=== PATIENT | female | born 1990 | race Caucasian/White ===

== ENCOUNTER 2017-05-06 13:41 | Emergency (ER) | payer OTHER ==
[~2017-05-06] VITALS: Ht 160 cm; Wt 71.0 kg
[~2017-05-06 13:41] MED LIST: AMOX/K CLAV500 MG PO; AMOXICILLIN500 MG OR; AMOXICILLIN500 MG PO; BENADRYL 50MG C50 MG PO; CAPOTEN25 MG PO; CIPRO500 MG PO; CIPROFLOXACN500 MG PO; CLONIDINE0.2 MG PO; DOMBORO OTIC15 ML OT; DOXAZOSIN2 M1 PO; FERR SULFATE325 MG PO; FIORICET PO; FISH OIL1 CAP PO; HI CAL PO; ISOSORB MONO30 MG PO; KEFLEX500 M1 PO; LORTAB 5/3255 MG PO; LORTAB 7.57.5 MG PO; LORTAB5 PO; MACROBID100 MG PO; MACRODANTIN100 MG OR; MACRODANTIN100 MG PO; MEDDOSEPAK PO; MEGESTROL AC20 MG PO; MELOXICAM7.5 MG PO; METOPROL TAR50 MG PO; MOTRIN800 MG PO; MULTI PO; NAPROSYN500 MG PO; NO HOME MEDS; NYSTATIN100000 M3 EX; PENICILLN VK250 MG PO; PENICILLN VK500 MG PO; PEPCID20 MG PO; PRENATA8 OR; PRENATABS PO; PRENATAL1 TAB OR; PYRIDIUM200 MG PO; RANITIDINE150 MG PO; TUMS500 MG; ULTRAM50 M1 PO
[2017-05-06] MEDS ORDERED: MACROBID100 MG PO (14:09)
[2017-05-06] MEDS ORDERED: PYRIDIUM200 MG PO (14:09)
[2017-05-06 14:25] LABS: URINE BILIRUBIN - DIPSTICK NEGATIVE (NEGATIVE); URINE BLOOD DIPSTICK LARGE (NEGATIVE); URINE COLOR YELLOW; URINE GLUCOSE - DIPSTICK NEGATIVE (NEGATIVE); URINE KETONE NEGATIVE (NEGATIVE); URINE NITRITE - DIPSTICK NEGATIVE (Negative); URINE PH 5.5 (4.5-8.0); URINE PROTEIN - DIPSTICK NEGATIVE (NEG-TRACE); URINE SPECIFIC GRAVITY <=1.005; URINE UROBILINOGEN - DIPSTICK 0.2 E.U./dL (0.2)
[2017-05-06 14:35] VITALS: BP 122/75
[2017-05-06 14:39] LABS: URINE CLARITY CLOUDY; URINE LEUK ESTERASE LARGE (NEGATIVE)
[2017-05-06 14:42] LABS: URINE BACTERIA FEW hpf; URINE RBC TNTC RBC/hpf (0-5); URINE WBC TNTC WBC/hpf (0-5)
== END 2017-05-06 14:39 | disposition home or self-care (01) | DRG 781 ==
LOC: ED 13:41
PROVIDERS: Emergency Medicine
DX: O23.41 Unspecified infection of urinary tract in pregnancy, first trimester (principal); Z3A.10 10 weeks gestation of pregnancy

== ENCOUNTER 2017-11-01 21:02 | Emergency (ER) | payer OTHER ==
[~2017-11-01] VITALS: Ht 160 cm; Wt 79.4 kg
[~2017-11-01 21:02] MED LIST changes: +PRE-NATAL PO
[2017-11-01 22:19] LABS: INFLUENZA A NONE DETECTED (NONE DETECT); INFLUENZA B NONE DETECTED (NONE DETECT)
[2017-11-01] MEDS ORDERED: MOTRIN800 MG PO (22:21)
[2017-11-01] MEDS ORDERED: AFRIN 12 HOUR0.05 % (22:21)
[2017-11-01 22:50] VITALS: BP 120/64
== END 2017-11-01 22:50 | disposition home or self-care (01) | DRG 781 ==
LOC: ED 21:02
PROVIDERS: Emergency Medicine
DX: O99.513 Diseases of the respiratory system complicating pregnancy, third trimester (principal); J06.9 Acute upper respiratory infection, unspecified; R50.9 Fever, unspecified; J02.9 Acute pharyngitis, unspecified; R05 Cough; Z3A.36 36 weeks gestation of pregnancy

== ENCOUNTER 2018-05-14 10:29 | Emergency (ER) | payer OTHER ==
[~2018-05-14] VITALS: Ht 160 cm; Wt 64.5 kg
[~2018-05-14 10:29] MED LIST changes: +AFRIN 12 HOUR0.05 %
[2018-05-14] MEDS ORDERED: AMOXICILLIN875 MG PO (11:32)
[2018-05-14 11:35] VITALS: BP 121/76
== END 2018-05-14 11:35 | disposition home or self-care (01) | DRG 153 ==
LOC: ED 10:29
DX: J02.0 Streptococcal pharyngitis (principal); H92.02 Otalgia, left ear

== ENCOUNTER 2018-07-11 10:01 | Emergency (ER) | payer OTHER ==
[~2018-07-11] VITALS: Ht 160 cm; Wt 66.8 kg
[~2018-07-11 10:01] MED LIST changes: +AMOXICILLIN875 MG PO
[2018-07-11 11:12] LABS: URINE BILIRUBIN - DIPSTICK NEGATIVE (NEGATIVE); URINE BLOOD DIPSTICK NEGATIVE (NEGATIVE); URINE COLOR YELLOW; URINE GLUCOSE - DIPSTICK NEGATIVE (NEGATIVE); URINE KETONE NEGATIVE (NEGATIVE); URINE LEUK ESTERASE TRACE (NEGATIVE); URINE NITRITE - DIPSTICK NEGATIVE (Negative); URINE PROTEIN - DIPSTICK NEGATIVE (NEG-TRACE); URINE SPECIFIC GRAVITY 1.015; URINE UROBILINOGEN - DIPSTICK 0.2 E.U./dL (0.2)
[2018-07-11 11:14] LABS: URINE CLARITY CLEAR
[2018-07-11 11:16] LABS: HEMATOCRIT 42.8 % (37.0-47.0); HEMOGLOBIN 14.2 g/dl (12.0-16.0); IMMATURE GRANULOCYTES 0.4 % (0.0-5.0); MEAN CELL VOLUME 92.6 fL CALC (80.0-100.0); MEAN CORPUSCULAR HGB 30.7 pG CALC (26.0-32.0); MEAN CORPUSCULAR HGB CONC 33.2 g/L CALC (32.0-36.0); NEUT# 4.69 thou/uL (2.00-7.15); RED BLOOD COUNT 4.62 mill/uL (4.20-5.60)
[2018-07-11 11:32] LABS: ALBUMIN 4.2 g/dL (3.2-5.0); ALKALINE PHOSPHATASE 63 u/l (38-126); ANION GAP 15 (6-22 (CALC)); BILIRUBIN, TOTAL 0.5 mg/dL (0.0-1.4); BUN 8 mg/dL (7-17); BUN/CREATININE RATIO 11 (12-20 (CALC)); CARBON DIOXIDE 25 mmol/l (22-30); CHLORIDE 108 mmol/l (95-108); CREATININE 0.7 mg/dL (0.5-1.0); GFR > 60 ML/MIN (>=60 (CALC)); GFR FOR AFR.AMER. > 60 ML/MIN (>=60 (CALC)); POTASSIUM 3.7 mmol/l (3.5-5.1); SGOT/AST 13 u/l (14-36); SGPT/ALT 23 u/l (9-52); SODIUM 144 mmol/l (137-146); TOTAL PROTEIN 6.8 g/dL (6.3-8.2)
[2018-07-11 11:51] VITALS: BP 116/77
== END 2018-07-11 12:07 | disposition home or self-care (01) ==
LOC: ED 10:01
PROVIDERS: Emergency Medicine
DX: N93.8 Other specified abnormal uterine and vaginal bleeding (principal)

== ENCOUNTER 2018-10-14 18:01 | Emergency (ER) | payer OTHER | END 2018-10-14 18:36 | disposition left against medical advice (07) | LOC: ED 18:01 → LWOBS 18:25 | DX: Z91.19 Patient's noncompliance with other medical treatment and regimen (principal) ==

== ENCOUNTER 2018-10-27 21:22 | Emergency (ER) | payer OTHER ==
[~2018-10-27] VITALS: Ht 160 cm; Wt 62.0 kg
[2018-10-27 22:07] LABS: HEMOGLOBIN 12.6 g/dl (12.0-16.0); IMMATURE GRANULOCYTES 0.3 % (0.0-5.0); MEAN CELL VOLUME 93.6 fL CALC (80.0-100.0); MEAN CORPUSCULAR HGB CONC 33.2 g/L CALC (32.0-36.0); NEUT# 4.36 thou/uL (2.00-7.15); RED BLOOD COUNT 4.06 mill/uL (4.20-5.60); RED CELL DISTRI WIDTH 12.6 % (11.5-15.5); URINE BILIRUBIN - DIPSTICK NEGATIVE (NEGATIVE); URINE BLOOD DIPSTICK LARGE (NEGATIVE); URINE GLUCOSE - DIPSTICK NEGATIVE (NEGATIVE); URINE KETONE NEGATIVE (NEGATIVE); URINE LEUK ESTERASE TRACE (NEGATIVE); URINE NITRITE - DIPSTICK NEGATIVE (Negative); URINE PH 6.5 (4.5-8.0); URINE PROTEIN - DIPSTICK 30 mg/dL (NEG-TRACE); URINE UROBILINOGEN - DIPSTICK 0.2 E.U./dL (0.2)
[2018-10-27 22:14] LABS: URINE CLARITY TURBID; URINE COLOR ORANGE; URINE RBC 25-50 RBC/hpf (0-5); URINE SQUAMOUS EPITHELIAL CELL FEW EPI/hpf (0-FEW)
[2018-10-27 22:28] LABS: ALBUMIN 3.8 g/dL (3.2-5.0); ALKALINE PHOSPHATASE 58 u/l (38-126); ANION GAP 12 (6-22 (CALC)); BILIRUBIN, TOTAL 0.2 mg/dL (0.0-1.4); BUN 10 mg/dL (7-17); BUN/CREATININE RATIO 13 (12-20 (CALC)); CARBON DIOXIDE 23 mmol/l (22-30); CHLORIDE 107 mmol/l (95-108); CREATININE 0.7 mg/dL (0.5-1.0); GFR > 60 ML/MIN (>=60 (CALC)); GFR FOR AFR.AMER. > 60 ML/MIN (>=60 (CALC)); POTASSIUM 3.4 mmol/l (3.5-5.1); SGOT/AST 14 u/l (14-36); SODIUM 138 mmol/l (137-146); TOTAL PROTEIN 6.5 g/dL (6.3-8.2)
[2018-10-27 22:44] LABS: BETA-HCG, QUANT(RESULT NUMBER) <2 mIU/mL
[2018-10-27 23:59] VITALS: BP 114/69
== END 2018-10-27 23:58 | disposition home or self-care (01) ==
LOC: ED 21:22
PROVIDERS: Emergency Medicine
DX: O20.9 Hemorrhage in early pregnancy, unspecified (principal); Z3A.01 Less than 8 weeks gestation of pregnancy

== ENCOUNTER 2018-11-02 15:33 | Emergency (ER) | payer OTHER ==
[~2018-11-02] VITALS: Ht 160 cm; Wt 70.0 kg
[2018-11-02] MEDS ORDERED: MOTRIN400 MG PO (16:07)
[2018-11-02] MEDS ORDERED: LO LOESTRIN PO (16:13)
[2018-11-02 16:55] VITALS: BP 127/84
== END 2018-11-02 16:55 | disposition home or self-care (01) ==
LOC: ED 15:33
DX: S90.02XA Contusion of left ankle, initial encounter (principal); S91.205A Unspecified open wound of left lesser toe(s) with damage to nail, initial encounter; S90.222A Contusion of left lesser toe(s) with damage to nail, initial encounter; W22.8XXA Striking against or struck by other objects, initial encounter; Y92.009 Unspecified place in unspecified non-institutional (private) residence as the place of occurrence of the external cause

== ENCOUNTER 2019-02-18 08:34 | Emergency (ER) | payer OTHER ==
[~2019-02-18] VITALS: Ht 160 cm; Wt 66.4 kg
[~2019-02-18 08:34] MED LIST changes: +LO LOESTRIN PO; +MOTRIN400 MG PO
[2019-02-18 09:02] LABS: URINE BLOOD DIPSTICK LARGE (NEGATIVE); URINE GLUCOSE - DIPSTICK NEGATIVE (NEGATIVE); URINE KETONE TRACE mg/dL (NEGATIVE); URINE NITRITE - DIPSTICK NEGATIVE (Negative); URINE PROTEIN - DIPSTICK >=300 mg/dL (NEG-TRACE); URINE SPECIFIC GRAVITY 1.025
[2019-02-18 09:06] LABS: URINE BILIRUBIN - DIPSTICK SMALL (NEGATIVE); URINE LEUK ESTERASE MODERATE (NEGATIVE)
[2019-02-18 09:07] LABS: URINE BACTERIA MODERATE hpf; URINE COLOR DK. YELLOW; URINE EPITHELIAL CELLS MANY EPI/hpf (0-FEW); URINE RBC 50-100 RBC/hpf (0-5); URINE WBC 20-50 WBC/hpf (0-5)
[2019-02-18] MEDS ORDERED: PYRIDIUM200 MG PO (09:17)
[2019-02-18] MEDS ORDERED: KEFLEX500 M1 PO (09:17)
[2019-02-18 09:18] VITALS: BP 119/74
== END 2019-02-18 09:32 | disposition home or self-care (01) ==
LOC: ED 08:34
PROVIDERS: Emergency Medicine
DX: N39.0 Urinary tract infection, site not specified (principal); R30.0 Dysuria; R35.0 Frequency of micturition; R39.15 Urgency of urination; B96.20 Unspecified Escherichia coli [E. coli] as the cause of diseases classified elsewhere

== ENCOUNTER 2019-03-29 17:58 | Emergency (ER) | payer OTHER ==
[~2019-03-29] VITALS: Ht 160 cm; Wt 65.0 kg
[2019-03-29 18:02] VITALS: BP 131/83
[2019-03-29] MEDS ORDERED: OXYCOD-APAP1 TA1 PO (18:20)
[2019-03-29] MEDS ORDERED: TRAMADOL HCL50 MG PO (18:20)
[2019-03-29 18:31] LABS: URINE BILIRUBIN - DIPSTICK NEGATIVE (NEGATIVE); URINE BLOOD DIPSTICK MODERATE (NEGATIVE); URINE COLOR YELLOW; URINE GLUCOSE - DIPSTICK NEGATIVE (NEGATIVE); URINE KETONE NEGATIVE (NEGATIVE); URINE NITRITE - DIPSTICK NEGATIVE (Negative); URINE PROTEIN - DIPSTICK NEGATIVE (NEG-TRACE); URINE UROBILINOGEN - DIPSTICK 0.2 E.U./dL (0.2)
[2019-03-29 18:34] LABS: URINE LEUK ESTERASE SMALL (NEGATIVE)
[2019-03-29 18:59] LABS: URINE BACTERIA FEW hpf; URINE RBC TNTC RBC/hpf (0-5); URINE SQUAMOUS EPITHELIAL CELL FEW EPI/hpf (0-FEW)
[2019-03-29] MEDS ORDERED: CIPROFLOXACN500 MG PO (19:12)
== END 2019-03-29 19:20 | disposition home or self-care (01) ==
LOC: ED 17:58
PROVIDERS: Emergency Medicine
DX: N39.0 Urinary tract infection, site not specified (principal); Z87.440 Personal history of urinary (tract) infections

== ENCOUNTER 2019-05-31 17:21 | Emergency (ER) | payer OTHER ==
[~2019-05-31] VITALS: Ht 160 cm; Wt 80.0 kg
[~2019-05-31 17:21] MED LIST changes: +OXYCOD-APAP1 TA1 PO; +TRAMADOL HCL50 MG PO
[2019-05-31] MEDS ORDERED: BACTRIM DS1 TAB PO ×2 (18:02→18:29)
[2019-05-31] MEDS ORDERED: CEPHALEXIN500 MG PO ×2 (18:02→18:29)
[2019-05-31 18:30] VITALS: BP 115/72
== END 2019-05-31 18:38 | disposition home or self-care (01) ==
LOC: ED 17:21
DX: T24.112A Burn of first degree of left thigh, initial encounter (principal); T24.121A Burn of first degree of right knee, initial encounter; T24.111A Burn of first degree of right thigh, initial encounter; L03.116 Cellulitis of left lower limb; L03.115 Cellulitis of right lower limb; X19.XXXA Contact with other heat and hot substances, initial encounter; Y93.89 Activity, other specified; Y92.89 Other specified places as the place of occurrence of the external cause

== ENCOUNTER 2019-06-03 19:01 | Emergency (ER) | payer OTHER ==
[~2019-06-03] VITALS: Ht 160 cm; Wt 70.9 kg
[~2019-06-03 19:01] MED LIST changes: +BACTRIM DS1 TAB PO; +CEPHALEXIN500 MG PO
[2019-06-03] MEDS ORDERED: BACTRIM DS1 TAB PO (19:34)
[2019-06-03 20:08] VITALS: BP 119/75
== END 2019-06-03 20:08 | disposition home or self-care (01) ==
LOC: ED 19:01
DX: S70.322A Blister (nonthermal), left thigh, initial encounter (principal); L08.9 Local infection of the skin and subcutaneous tissue, unspecified; F17.200 Nicotine dependence, unspecified, uncomplicated; X58.XXXA Exposure to other specified factors, initial encounter

== ENCOUNTER 2019-07-05 10:07 | Emergency (ER) | payer OTHER ==
[~2019-07-05] VITALS: Ht 160 cm; Wt 71.8 kg
[2019-07-05 10:52] LABS: IMMATURE GRANULOCYTES 0.3 % (0.0-5.0); MEAN CELL VOLUME 93.2 fL CALC (80.0-100.0); MEAN CORPUSCULAR HGB 30.2 pG CALC (26.0-32.0); MEAN CORPUSCULAR HGB CONC 32.4 g/L CALC (32.0-36.0); NEUT# 7.34 thou/uL (2.00-7.15); RED BLOOD COUNT 4.84 mill/uL (4.20-5.60); RED CELL DISTRI WIDTH 12.7 % (11.5-15.5)
[2019-07-05 10:55] LABS: HEMATOCRIT 45.1 % (37.0-47.0); HEMOGLOBIN 14.6 g/dl (12.0-16.0)
[2019-07-05 11:10] LABS: ALBUMIN 4.5 g/dL (3.2-5.0); ANION GAP 16 (6-22 (CALC)); BUN 7 mg/dL (7-17); BUN/CREATININE RATIO 10 (12-20 (CALC)); CARBON DIOXIDE 23 mmol/l (22-30); CHLORIDE 104 mmol/l (95-108); CREATININE 0.7 mg/dL (0.5-1.0); GFR > 60 ML/MIN (>=60 (CALC)); GFR FOR AFR.AMER. > 60 ML/MIN (>=60 (CALC)); POTASSIUM 3.8 mmol/l (3.5-5.1); SGOT/AST 17 u/l (14-36); SODIUM 139 mmol/l (137-146); TOTAL PROTEIN 7.3 g/dL (6.3-8.2)
[2019-07-05 11:11] LABS: ALKALINE PHOSPHATASE 90 u/l (38-126); BILIRUBIN, TOTAL 0.5 mg/dL (0.0-1.4)
[2019-07-05] MEDS ORDERED: CEPHALEXIN500 M1 PO (11:16)
[2019-07-05] MEDS ORDERED: BACTRIM DS1 TAB PO (11:16)
[2019-07-05] MEDS ORDERED: BENADRYL 50MG C50 MG PO (11:18)
[2019-07-05 11:47] VITALS: BP 129/76
[2019-07-05] MEDS ORDERED: IBUPROFEN600 MG PO (23:26)
== END 2019-07-05 11:50 | disposition home or self-care (01) ==
LOC: ED 10:07
PROVIDERS: Emergency Medicine
DX: L03.114 Cellulitis of left upper limb (principal); F17.210 Nicotine dependence, cigarettes, uncomplicated

== ENCOUNTER 2019-07-05 22:56 | Emergency (ER) | payer OTHER ==
[~2019-07-05] VITALS: Ht 160 cm; Wt 69.0 kg
[~2019-07-05 22:56] MED LIST changes: +CEPHALEXIN500 M1 PO
[2019-07-05 23:13] VITALS: BP 135/79
[2019-07-05] MEDS ORDERED: IBUPROFEN600 MG PO (23:26)
== END 2019-07-05 23:30 | disposition home or self-care (01) ==
LOC: ED 22:56
DX: S40.862A Insect bite (nonvenomous) of left upper arm, initial encounter (principal); F17.200 Nicotine dependence, unspecified, uncomplicated; W57.XXXA Bitten or stung by nonvenomous insect and other nonvenomous arthropods, initial encounter

== ENCOUNTER 2019-07-06 09:20 | Emergency (ER) | payer OTHER ==
[~2019-07-06] VITALS: Ht 160 cm; Wt 70.0 kg
[~2019-07-06 09:20] MED LIST changes: +IBUPROFEN600 MG PO
[2019-07-06 09:48] VITALS: BP 132/92
== END 2019-07-06 09:53 | disposition home or self-care (01) ==
LOC: ED 09:20
DX: L03.114 Cellulitis of left upper limb (principal); S50.862D Insect bite (nonvenomous) of left forearm, subsequent encounter; F17.210 Nicotine dependence, cigarettes, uncomplicated; W57.XXXD Bitten or stung by nonvenomous insect and other nonvenomous arthropods, subsequent encounter

== ENCOUNTER 2020-10-06 12:05 | Emergency (ER) | payer OTHER ==
[~2020-10-06] VITALS: Ht 160 cm; Wt 85.0 kg
[2020-10-06 13:04] LABS: HEMOGLOBIN 13.3 g/dl (12.0-16.0); IMMATURE GRANULOCYTES 0.2 % (0.0-5.0); MEAN CELL VOLUME 93.8 fL CALC (80.0-100.0); MEAN CORPUSCULAR HGB 30.4 pG CALC (26.0-32.0); MEAN CORPUSCULAR HGB CONC 32.4 g/dL CAL (32.0-36.0); NEUT# 5.73 thou/uL (2.00-7.15); RED BLOOD COUNT 4.37 mill/uL (4.20-5.60); RED CELL DISTRI WIDTH 12.8 % (11.5-15.5)
[2020-10-06 13:18] LABS: HCG SERUM/URINE (NEG/POS) NEGATIVE (NEGATIVE)
[2020-10-06 13:21] LABS: ANION GAP 11 (6-22 (CALC)); BUN 9 mg/dL (7-17); BUN/CREATININE RATIO 13 (12-20 (CALC)); CARBON DIOXIDE 24 mmol/l (22-30); CHLORIDE 107 mmol/l (95-108); CREATININE 0.7 mg/dL (0.5-1.0); GFR > 60 ML/MIN (>=60 (CALC)); GFR FOR AFR.AMER. > 60 ML/MIN (>=60 (CALC)); SODIUM 139 mmol/l (137-146)
[2020-10-06 14:38] VITALS: BP 100/54
== END 2020-10-06 14:45 | disposition home or self-care (01) ==
LOC: ED 12:05
PROVIDERS: Family Medicine
DX: R07.9 Chest pain, unspecified (principal); F17.200 Nicotine dependence, unspecified, uncomplicated; Z20.828 Contact with and (suspected) exposure to other viral communicable diseases

== ENCOUNTER 2020-11-14 12:51 | Emergency (ER) | payer OTHER ==
[~2020-11-14] VITALS: Ht 160 cm; Wt 72.0 kg
[2020-11-14 13:28] LABS: HEMATOCRIT 42.5 % (37.0-47.0); HEMOGLOBIN 13.6 g/dl (12.0-16.0); IMMATURE GRANULOCYTES 0.3 % (0.0-5.0); MEAN CELL VOLUME 93.4 fL CALC (80.0-100.0); MEAN CORPUSCULAR HGB 29.9 pG CALC (26.0-32.0); NEUT# 5.46 thou/uL (2.00-7.15); RED BLOOD COUNT 4.55 mill/uL (4.20-5.60); RED CELL DISTRI WIDTH 12.9 % (11.5-15.5)
[2020-11-14 13:30] LABS: URINE BILIRUBIN - DIPSTICK NEGATIVE (NEGATIVE); URINE BLOOD DIPSTICK LARGE (NEGATIVE); URINE CLARITY CLOUDY; URINE COLOR RED; URINE GLUCOSE - DIPSTICK NEGATIVE (NEGATIVE); URINE KETONE NEGATIVE (NEGATIVE); URINE LEUK ESTERASE TRACE (Negative); URINE NITRITE - DIPSTICK NEGATIVE (Negative); URINE PH 6.5 (4.5-8.0); URINE PROTEIN - DIPSTICK 30 mg/dL (NEG-TRACE); URINE UROBILINOGEN - DIPSTICK 0.2 E.U./dL (0.2)
[2020-11-14 13:36] LABS: URINE RBC TNTC RBC/hpf (0-5); URINE SQUAMOUS EPITHELIAL CELL FEW EPI/hpf (0-FEW)
[2020-11-14 13:43] LABS: ALBUMIN 4.2 g/dL (3.2-5.0); ALKALINE PHOSPHATASE 69 u/l (38-126); ANION GAP 11 (6-22 (CALC)); BILIRUBIN, TOTAL 0.4 mg/dL (0.0-1.4); BUN 9 mg/dL (7-17); BUN/CREATININE RATIO 11 (12-20 (CALC)); CARBON DIOXIDE 24 mmol/l (22-30); CHLORIDE 106 mmol/l (95-108); CREATININE 0.8 mg/dL (0.5-1.0); GFR > 60 ML/MIN (>=60 (CALC)); GFR FOR AFR.AMER. > 60 ML/MIN (>=60 (CALC)); POTASSIUM 3.8 mmol/l (3.5-5.1); SGOT/AST 18 u/l (14-36); SODIUM 137 mmol/l (137-146); TOTAL PROTEIN 7.2 g/dL (6.3-8.2)
[2020-11-14 14:36] VITALS: BP 123/72
== END 2020-11-14 14:48 | disposition home or self-care (01) ==
LOC: ED 12:51
DX: N93.8 Other specified abnormal uterine and vaginal bleeding (principal); F17.210 Nicotine dependence, cigarettes, uncomplicated; Z20.828 Contact with and (suspected) exposure to other viral communicable diseases; S61.212A Laceration without foreign body of right middle finger without damage to nail, initial encounter; F17.200 Nicotine dependence, unspecified, uncomplicated; W25.XXXA Contact with sharp glass, initial encounter; Y92.009 Unspecified place in unspecified non-institutional (private) residence as the place of occurrence of the external cause

== ENCOUNTER 2020-11-14 21:30 | Emergency (ER) | payer OTHER ==
[~2020-11-14] VITALS: Ht 160 cm; Wt 72.0 kg
[2020-11-14 21:34] VITALS: BP 131/79
== END 2020-11-14 22:08 | disposition home or self-care (01) ==
LOC: ED 21:30
DX: S61.212A Laceration without foreign body of right middle finger without damage to nail, initial encounter (principal); F17.200 Nicotine dependence, unspecified, uncomplicated; W25.XXXA Contact with sharp glass, initial encounter; Y92.009 Unspecified place in unspecified non-institutional (private) residence as the place of occurrence of the external cause

== ENCOUNTER 2021-01-22 11:53 | Emergency (ER) | payer OTHER ==
[2021-01-22] MEDS ORDERED: ZOFRAN4 MG/TAB PO (17:43)
[2021-01-22] MEDS ORDERED: KEFLEX500 M1 PO (17:43)
[2021-01-22] MEDS ORDERED: PYRIDIUM200 MG PO (17:43)
[2021-01-22] MEDS ORDERED: SPRINTEC 2828 DAY PO (17:44)
== END 2021-01-22 12:37 | disposition left against medical advice (07) | DRG 951 ==
LOC: ED 11:53 → LWOBS 12:28
DX: Z53.21 Procedure and treatment not carried out due to patient leaving prior to being seen by health care provider (principal)

== ENCOUNTER 2021-01-22 15:50 | Emergency (ER) | payer OTHER ==
[~2021-01-22] VITALS: Ht 160 cm; Wt 69.5 kg
[2021-01-22 17:18] LABS: URINE BILIRUBIN - DIPSTICK NEGATIVE (NEGATIVE); URINE BLOOD DIPSTICK SMALL (NEGATIVE); URINE COLOR YELLOW; URINE GLUCOSE - DIPSTICK NEGATIVE (NEGATIVE); URINE KETONE NEGATIVE (NEGATIVE); URINE NITRITE - DIPSTICK NEGATIVE (Negative); URINE PROTEIN - DIPSTICK NEGATIVE (NEG-TRACE); URINE UROBILINOGEN - DIPSTICK 0.2 E.U./dL (0.2)
[2021-01-22 17:20] LABS: URINE LEUK ESTERASE MODERATE (NEGATIVE)
[2021-01-22 17:31] LABS: URINE SQUAMOUS EPITHELIAL CELL FEW EPI/hpf (0-FEW); URINE WBC 20-50 WBC/hpf (0-5)
[2021-01-22] MEDS ORDERED: KEFLEX500 M1 PO (17:43)
[2021-01-22] MEDS ORDERED: ZOFRAN4 MG/TAB PO (17:43)
[2021-01-22] MEDS ORDERED: PYRIDIUM200 MG PO (17:43)
[2021-01-22] MEDS ORDERED: SPRINTEC 2828 DAY PO (17:44)
[2021-01-22 17:50] VITALS: BP 126/66
== END 2021-01-22 17:50 | disposition home or self-care (01) ==
LOC: ED 15:50
PROVIDERS: Student in an Organized Health Care Education/Training Program
DX: N39.0 Urinary tract infection, site not specified (principal); F17.200 Nicotine dependence, unspecified, uncomplicated; B96.20 Unspecified Escherichia coli [E. coli] as the cause of diseases classified elsewhere; Z87.440 Personal history of urinary (tract) infections

== ENCOUNTER 2021-04-04 16:20 | Emergency (ER) | payer OTHER ==
[~2021-04-04] VITALS: Ht 160 cm; Wt 70.0 kg
[~2021-04-04 16:20] MED LIST changes: +SPRINTEC 2828 DAY PO; +ZOFRAN4 MG/TAB PO
[2021-04-04 16:37] VITALS: BP 133/74
[2021-04-04 16:45] LABS: URINE BILIRUBIN - DIPSTICK NEGATIVE (NEGATIVE); URINE BLOOD DIPSTICK TRACE-INTACT (NEGATIVE); URINE GLUCOSE - DIPSTICK 250 mg/dL (NEGATIVE); URINE KETONE TRACE mg/dL (NEGATIVE); URINE LEUK ESTERASE TRACE (NEGATIVE); URINE PROTEIN - DIPSTICK >=300 mg/dL (NEG-TRACE); URINE UROBILINOGEN - DIPSTICK >=8.0 E.U./dL (0.2)
[2021-04-04 16:49] LABS: URINE COLOR AMBER; URINE NITRITE - DIPSTICK POSITIVE (Negative)
[2021-04-04 16:58] LABS: URINE FINE GRAN CAST FEW lpf; URINE SQUAMOUS EPITHELIAL CELL FEW EPI/hpf (0-FEW)
[2021-04-04] MEDS ORDERED: PYRIDIUM200 MG PO (17:18)
[2021-04-04] MEDS ORDERED: CIPROFLOXACN500 MG PO (17:18)
== END 2021-04-04 17:35 | disposition home or self-care (01) ==
LOC: ED 16:20
PROVIDERS: Family Medicine
DX: N39.0 Urinary tract infection, site not specified (principal); F17.210 Nicotine dependence, cigarettes, uncomplicated; B96.1 Klebsiella pneumoniae [K. pneumoniae] as the cause of diseases classified elsewhere; Z87.440 Personal history of urinary (tract) infections

== ENCOUNTER 2021-07-18 20:41 | Emergency (ER) | payer OTHER ==
[~2021-07-18] VITALS: Ht 160 cm; Wt 68.0 kg
[2021-07-18 21:10] VITALS: BP 120/87
[2021-07-18 21:59] LABS: URINE BILIRUBIN - DIPSTICK NEGATIVE (NEGATIVE); URINE BLOOD DIPSTICK NEGATIVE (NEGATIVE); URINE COLOR YELLOW; URINE GLUCOSE - DIPSTICK NEGATIVE (NEGATIVE); URINE KETONE NEGATIVE (NEGATIVE); URINE LEUK ESTERASE NEGATIVE (NEGATIVE); URINE PH 6.5 (4.5-8.0); URINE PROTEIN - DIPSTICK NEGATIVE (NEG-TRACE); URINE UROBILINOGEN - DIPSTICK 0.2 E.U./dL (0.2)
[2021-07-18 22:00] LABS: URINE NITRITE - DIPSTICK NEGATIVE (Negative)
[2021-07-18] MEDS ORDERED: AMOXICILLIN500 MG PO (22:40)
== END 2021-07-19 23:33 | disposition home or self-care (01) ==
LOC: ED 20:41
PROVIDERS: Emergency Medicine
DX: U07.1 COVID-19 (principal); F17.200 Nicotine dependence, unspecified, uncomplicated; Z87.440 Personal history of urinary (tract) infections

== ENCOUNTER 2021-07-22 21:09 | Emergency (ER) | payer OTHER ==
[~2021-07-22] VITALS: Ht 160 cm; Wt 71.8 kg
[2021-07-22 22:12] LABS: HEMATOCRIT 45.9 % (37.0-47.0); HEMOGLOBIN 14.6 g/dl (12.0-16.0); IMMATURE GRANULOCYTES 0.3 % (0.0-5.0); MEAN CELL VOLUME 94.4 fL CALC (80.0-100.0); MEAN CORPUSCULAR HGB CONC 31.8 g/dL CAL (32.0-36.0); NEUT# 1.41 thou/uL (2.00-7.15); RED BLOOD COUNT 4.86 mill/uL (4.20-5.60); RED CELL DISTRI WIDTH 13.9 % (11.5-15.5)
[2021-07-22 22:21] LABS: ALBUMIN 4.1 g/dL (3.2-5.0); ALKALINE PHOSPHATASE 63 u/l (38-126); AMYLASE 83 u/l (30-110); ANION GAP 12 (6-22 (CALC)); BUN 7 mg/dL (7-17); BUN/CREATININE RATIO 10 (12-20 (CALC)); CARBON DIOXIDE 26 mmol/l (22-30); CHLORIDE 105 mmol/l (95-108); CREATININE 0.7 mg/dL (0.5-1.0); GFR > 60 ML/MIN (>=60 (CALC)); GFR FOR AFR.AMER. > 60 ML/MIN (>=60 (CALC)); LIPASE 233 u/l (23-300); POTASSIUM 3.9 mmol/l (3.5-5.1); SGOT/AST 29 u/l (14-36); SODIUM 139 mmol/l (137-146); TOTAL PROTEIN 7.5 g/dL (6.3-8.2)
[2021-07-22 22:22] LABS: BILIRUBIN, TOTAL 0.1 mg/dL (0.0-1.4)
[2021-07-22 22:24] LABS: D-DIMER 0.43 mg/L (0.19-0.60)
[2021-07-22 22:27] LABS: ACT PARTIAL THROMBO TIME 26.1 SECONDS (20.0-32.5)
[2021-07-22 22:33] LABS: MYOGLOBIN 17 ng/mL (0 - 62)
[2021-07-22] MEDS ORDERED: VOLTAREN75 MG PO (22:41)
[2021-07-22 23:22] VITALS: BP 114/61
== END 2021-07-22 23:31 | disposition home or self-care (01) ==
LOC: ED 21:09
PROVIDERS: Family Medicine
DX: U07.1 COVID-19 (principal); Z87.440 Personal history of urinary (tract) infections; Z87.891 Personal history of nicotine dependence

== ENCOUNTER 2021-07-31 23:34 | Emergency (ER) | payer OTHER ==
[~2021-07-31] VITALS: Ht 160 cm; Wt 72.0 kg
[~2021-07-31 23:34] MED LIST changes: +VOLTAREN75 MG PO
[2021-08-01 00:45] LABS: HEMOGLOBIN 12.8 g/dl (12.0-16.0); IMMATURE GRANULOCYTES 0.5 % (0.0-5.0); MEAN CELL VOLUME 92.1 fL CALC (80.0-100.0); MEAN CORPUSCULAR HGB 29.7 pG CALC (26.0-32.0); MEAN CORPUSCULAR HGB CONC 32.2 g/dL CAL (32.0-36.0); NEUT# 4.82 thou/uL (2.00-7.15); RED BLOOD COUNT 4.31 mill/uL (4.20-5.60); RED CELL DISTRI WIDTH 13.1 % (11.5-15.5)
[2021-08-01 00:53] LABS: HEMATOCRIT 39.7 % (37.0-47.0)
[2021-08-01 00:59] LABS: ALBUMIN 3.8 g/dL (3.2-5.0); ALKALINE PHOSPHATASE 51 u/l (38-126); ANION GAP 12 (6-22 (CALC)); BUN 10 mg/dL (7-17); BUN/CREATININE RATIO 15 (12-20 (CALC)); CARBON DIOXIDE 21 mmol/l (22-30); CHLORIDE 105 mmol/l (95-108); CREATININE 0.6 mg/dL (0.5-1.0); GFR > 60 ML/MIN (>=60 (CALC)); GFR FOR AFR.AMER. > 60 ML/MIN (>=60 (CALC)); POTASSIUM 3.3 mmol/l (3.5-5.1); SGOT/AST 39 u/l (14-36); SODIUM 135 mmol/l (137-146); TOTAL PROTEIN 6.8 g/dL (6.3-8.2)
[2021-08-01 01:02] LABS: BILIRUBIN, TOTAL 0.7 mg/dL (0.0-1.4)
[2021-08-01 01:11] LABS: MYOGLOBIN 17 ng/mL (0 - 62)
[2021-08-01 01:21] LABS: URINE BILIRUBIN - DIPSTICK NEGATIVE (NEGATIVE); URINE BLOOD DIPSTICK NEGATIVE (NEGATIVE); URINE COLOR YELLOW; URINE GLUCOSE - DIPSTICK NEGATIVE (NEGATIVE); URINE KETONE NEGATIVE (NEGATIVE); URINE LEUK ESTERASE NEGATIVE (NEGATIVE); URINE PROTEIN - DIPSTICK NEGATIVE (NEG-TRACE); URINE SPECIFIC GRAVITY <=1.005; URINE UROBILINOGEN - DIPSTICK 0.2 E.U./dL (0.2)
[2021-08-01 01:26] LABS: URINE NITRITE - DIPSTICK NEGATIVE (Negative)
[2021-08-01] MEDS ORDERED: NAPROXEN500 MG PO (01:33)
[2021-08-01 02:09] VITALS: BP 114/65
== END 2021-08-01 02:09 | disposition home or self-care (01) ==
LOC: ED 23:34
PROVIDERS: Emergency Medicine
DX: U07.1 COVID-19 (principal); Z87.440 Personal history of urinary (tract) infections

== ENCOUNTER 2021-08-23 10:58 | Emergency (ER) | payer OTHER ==
[~2021-08-23] VITALS: Ht 160 cm; Wt 72.6 kg
[~2021-08-23 10:58] MED LIST changes: +NAPROXEN500 MG PO
[2021-08-23] MEDS ORDERED: ZPAK PO (12:40)
[2021-08-23 13:26] VITALS: BP 116/61
== END 2021-08-23 13:26 | disposition home or self-care (01) ==
LOC: ED 10:58
DX: J02.9 Acute pharyngitis, unspecified (principal); Z86.16 Personal history of COVID-19; Z20.822 Contact with and (suspected) exposure to COVID-19

== ENCOUNTER 2021-10-05 16:26 | Emergency (ER) | payer OTHER ==
[~2021-10-05] VITALS: Ht 160 cm; Wt 70.0 kg
[~2021-10-05 16:26] MED LIST changes: +ZPAK PO
[2021-10-05] MEDS ORDERED: SPRINTEC 2828 DAY PO (17:52)
[2021-10-05 18:53] VITALS: BP 97/51
== END 2021-10-05 18:55 | disposition home or self-care (01) ==
LOC: ED 16:26
DX: J39.9 Disease of upper respiratory tract, unspecified (principal); Z86.16 Personal history of COVID-19; Z87.440 Personal history of urinary (tract) infections; Z20.822 Contact with and (suspected) exposure to COVID-19

== ENCOUNTER 2021-12-05 18:26 | Emergency (ER) | payer OTHER ==
[~2021-12-05] VITALS: Ht 162.6 cm; Wt 60.0 kg
== END 2021-12-05 23:37 | disposition left against medical advice (07) ==
LOC: ED
DX: Z91.19 Patient's noncompliance with other medical treatment and regimen (principal)

== ENCOUNTER 2022-01-31 17:54 | Emergency (ER) | payer OTHER ==
[~2022-01-31] VITALS: Ht 162.6 cm; Wt 70.0 kg
[2022-01-31 20:18] VITALS: BP 108/56
[2022-01-31] MEDS ORDERED: AMOXICILLIN875 MG PO (21:51)
== END 2022-01-31 22:05 | disposition home or self-care (01) ==
LOC: ED 17:54
DX: J02.9 Acute pharyngitis, unspecified (principal); Z20.822 Contact with and (suspected) exposure to COVID-19

== ENCOUNTER 2022-03-05 22:50 | Emergency (ER) | payer OTHER ==
[~2022-03-05] VITALS: Ht 162.6 cm; Wt 68.0 kg
[2022-03-05 22:58] VITALS: BP 125/82
[2022-03-05 23:00] VITALS: BP 132/93
[2022-03-05 23:31] VITALS: BP 126/89
[2022-03-05 23:46] VITALS: BP 104/66
[2022-03-06 00:10] VITALS: BP 104/66
== END 2022-03-06 00:10 | disposition home or self-care (01) ==
LOC: ED 22:50
DX: S93.602A Unspecified sprain of left foot, initial encounter (principal); X50.0XXA Overexertion from strenuous movement or load, initial encounter

== ENCOUNTER 2022-03-28 18:18 | Emergency (ER) | payer OTHER ==
[~2022-03-28] VITALS: Ht 162.6 cm; Wt 78.0 kg
[2022-03-28 21:48] VITALS: BP 108/66
== END 2022-03-28 21:55 | disposition home or self-care (01) ==
LOC: ED 18:18
DX: S60.011A Contusion of right thumb without damage to nail, initial encounter (principal); W23.0XXA Caught, crushed, jammed, or pinched between moving objects, initial encounter

== ENCOUNTER 2022-04-10 17:58 | Emergency (ER) | payer OTHER ==
[~2022-04-10] VITALS: Ht 162.6 cm; Wt 70.5 kg
[2022-04-10 18:45] VITALS: BP 105/88
[2022-04-10 19:00] VITALS: BP 117/82
[2022-04-10] MEDS ORDERED: EC-NAPROXEN500 MG PO (20:08)
[2022-04-10 20:18] VITALS: BP 117/82
== END 2022-04-10 20:21 | disposition home or self-care (01) ==
LOC: ED 17:58
DX: M79.672 Pain in left foot (principal)

== ENCOUNTER 2022-05-03 12:10 | Emergency (ER) | payer OTHER ==
[~2022-05-03] VITALS: Ht 162.6 cm; Wt 68.0 kg
[~2022-05-03 12:10] MED LIST changes: +EC-NAPROXEN500 MG PO
[2022-05-03 12:18] VITALS: BP 119/71
[2022-05-03 12:30] VITALS: BP 113/70
[2022-05-03 12:56] LABS: URINE BILIRUBIN - DIPSTICK NEGATIVE (NEGATIVE); URINE BLOOD DIPSTICK LARGE (NEGATIVE); URINE COLOR YELLOW; URINE GLUCOSE - DIPSTICK NEGATIVE (NEGATIVE); URINE KETONE NEGATIVE (NEGATIVE); URINE LEUK ESTERASE NEGATIVE (NEGATIVE); URINE PROTEIN - DIPSTICK NEGATIVE (NEG-TRACE); URINE SPECIFIC GRAVITY <=1.005; URINE UROBILINOGEN - DIPSTICK 0.2 E.U./dL (0.2)
[2022-05-03 12:57] LABS: URINE NITRITE - DIPSTICK NEGATIVE (Negative)
[2022-05-03 13:00] VITALS: BP 99/67
[2022-05-03 13:13] LABS: URINE SQUAMOUS EPITHELIAL CELL MODERATE EPI/hpf (0-FEW); URINE WBC 0-2 WBC/hpf (0-5)
[2022-05-03 13:30] VITALS: BP 108/62
[2022-05-03] MEDS ORDERED: PYRIDIUM200 MG PO (14:06)
[2022-05-03] MEDS ORDERED: NAPROXEN500 MG PO (14:06)
[2022-05-03] MEDS ORDERED: KEFLEX500 MG PO (14:06)
[2022-05-03 14:18] VITALS: BP 108/62
== END 2022-05-03 14:25 | disposition home or self-care (01) ==
LOC: ED 12:10
PROVIDERS: Emergency Medicine
DX: N39.0 Urinary tract infection, site not specified (principal); N83.291 Other ovarian cyst, right side

== ENCOUNTER 2022-07-25 20:50 | Emergency (ER) | payer OTHER ==
[~2022-07-25] VITALS: Ht 162.6 cm; Wt 71.8 kg
[~2022-07-25 20:50] MED LIST changes: +KEFLEX500 MG PO
[2022-07-25 20:58] VITALS: BP 124/91
[2022-07-25 21:00] VITALS: BP 126/85
[2022-07-25 21:05] VITALS: BP 126/85
[2022-07-25 21:54] LABS: URINE BILIRUBIN - DIPSTICK NEGATIVE (NEGATIVE); URINE BLOOD DIPSTICK TRACE-INTACT (NEGATIVE); URINE COLOR YELLOW; URINE GLUCOSE - DIPSTICK NEGATIVE (NEGATIVE); URINE KETONE NEGATIVE (NEGATIVE); URINE LEUK ESTERASE NEGATIVE (NEGATIVE); URINE PROTEIN - DIPSTICK NEGATIVE (NEG-TRACE); URINE UROBILINOGEN - DIPSTICK 0.2 E.U./dL (0.2)
[2022-07-25 21:56] LABS: URINE NITRITE - DIPSTICK NEGATIVE (Negative)
[2022-07-25 22:05] LABS: HEMATOCRIT 42.1 % (37.0-47.0); HEMOGLOBIN 13.9 g/dl (12.0-16.0); IMMATURE GRANULOCYTES 0.1 % (0.0-5.0); MEAN CELL VOLUME 91.1 fL CALC (80.0-100.0); MEAN CORPUSCULAR HGB 30.1 pG CALC (26.0-32.0); NEUT# 9.48 thou/uL (2.00-7.15); RED BLOOD COUNT 4.62 mill/uL (4.20-5.60); RED CELL DISTRI WIDTH 13.1 % (11.5-15.5)
[2022-07-25 22:25] LABS: ALBUMIN 4.2 g/dL (3.2-5.0); ALKALINE PHOSPHATASE 74 u/l (38-126); ANION GAP 12 (6-22 (CALC)); BUN 2 mg/dL (7-17); BUN/CREATININE RATIO 4 (12-20 (CALC)); CARBON DIOXIDE 23 mmol/l (22-30); CHLORIDE 108 mmol/l (95-108); CREATININE 0.7 mg/dL (0.5-1.0); GFR FOR AFR.AMER. > 60 ML/MIN (>=60 (CALC)); GFR OTHER RACES > 60 ML/MIN (>=60 (CALC)); POTASSIUM 3.7 mmol/l (3.5-5.1); SGOT/AST 15 u/l (14-36); SODIUM 139 mmol/l (137-146); TOTAL PROTEIN 7.1 g/dL (6.3-8.2)
[2022-07-25 22:35] LABS: BILIRUBIN, TOTAL 0.3 mg/dL (0.0-1.4)
[2022-07-25] MEDS ORDERED: ROBITUSSIN AC10 ML PO (23:04)
[2022-07-25] MEDS ORDERED: KEFLEX500 MG PO (23:04)
== END 2022-07-25 23:15 | disposition home or self-care (01) ==
LOC: ED 20:50
PROVIDERS: Emergency Medicine
DX: J06.9 Acute upper respiratory infection, unspecified (principal); Z20.822 Contact with and (suspected) exposure to COVID-19

== ENCOUNTER 2022-10-23 18:03 | Emergency (ER) | payer OTHER ==
[~2022-10-23] VITALS: Ht 162.6 cm; Wt 69.3 kg
[~2022-10-23 18:03] MED LIST changes: +ROBITUSSIN AC10 ML PO
[2022-10-23] MEDS ORDERED: AMOXICILLIN500 MG PO (20:42)
[2022-10-23] MEDS ORDERED: CLARITIN10 M2 PO (20:42)
== END 2022-10-23 21:38 | disposition home or self-care (01) ==
LOC: ED 18:03
DX: J02.9 Acute pharyngitis, unspecified (principal); F17.200 Nicotine dependence, unspecified, uncomplicated

== ENCOUNTER 2022-11-12 01:21 | Emergency (ER) | payer OTHER ==
[~2022-11-12] VITALS: Ht 162.6 cm; Wt 64.0 kg
[~2022-11-12 01:21] MED LIST changes: +CLARITIN10 M2 PO
[2022-11-12 03:23] LABS: URINE BILIRUBIN - DIPSTICK NEGATIVE (NEGATIVE); URINE BLOOD DIPSTICK NEGATIVE (NEGATIVE); URINE CLARITY SL CLOUDY; URINE COLOR YELLOW; URINE GLUCOSE - DIPSTICK NEGATIVE (NEGATIVE); URINE KETONE NEGATIVE (NEGATIVE); URINE LEUK ESTERASE NEGATIVE (Negative); URINE NITRITE - DIPSTICK NEGATIVE (Negative); URINE PROTEIN - DIPSTICK NEGATIVE (NEG-TRACE); URINE SPECIFIC GRAVITY <=1.005; URINE UROBILINOGEN - DIPSTICK 0.2 E.U./dL (0.2)
[2022-11-12 03:24] LABS: HEMATOCRIT 45.3 % (37.0-47.0); HEMOGLOBIN 15.1 g/dl (12.0-16.0); IMMATURE GRANULOCYTES 0.4 % (0.0-5.0); MEAN CELL VOLUME 91.9 fL CALC (80.0-100.0); MEAN CORPUSCULAR HGB 30.6 pG CALC (26.0-32.0); MEAN CORPUSCULAR HGB CONC 33.3 g/dL CAL (32.0-36.0); NEUT# 3.48 thou/uL (2.00-7.15); RED BLOOD COUNT 4.93 mill/uL (4.20-5.60); RED CELL DISTRI WIDTH 13.1 % (11.5-15.5)
[2022-11-12 03:35] LABS: ALBUMIN 4.4 g/dL (3.2-5.0); ALKALINE PHOSPHATASE 67 u/l (38-126); ANION GAP 10 (6-22 (CALC)); BILIRUBIN, TOTAL 0.5 mg/dL (0.0-1.4); BUN 7 mg/dL (7-17); BUN/CREATININE RATIO 9 (12-20 (CALC)); CARBON DIOXIDE 25 mmol/l (22-30); CHLORIDE 108 mmol/l (95-108); CREATININE 0.8 mg/dL (0.5-1.0); ETHYL ALCOHOL 0 mg/dl (0-30); GFR FOR AFR.AMER. > 60 ML/MIN (>=60 (CALC)); GFR OTHER RACES > 60 ML/MIN (>=60 (CALC)); POTASSIUM 4.3 mmol/l (3.5-5.1); SGOT/AST 22 u/l (14-36); SODIUM 139 mmol/l (137-146); TOTAL PROTEIN 7.5 g/dL (6.3-8.2)
[2022-11-12 04:24] VITALS: BP 00/00
== END 2022-11-12 04:26 | disposition home or self-care (01) ==
LOC: ED 01:21
PROVIDERS: Family Medicine
DX: S40.011A Contusion of right shoulder, initial encounter (principal); V48.5XXA Car driver injured in noncollision transport accident in traffic accident, initial encounter

== ENCOUNTER 2022-11-23 19:50 | Emergency (ER) | payer OTHER ==
[~2022-11-23] VITALS: Ht 162.6 cm; Wt 72.7 kg
[2022-11-23 20:01] VITALS: BP 119/84
[2022-11-23] MEDS ORDERED: AMOXICILLIN500 MG PO (20:11)
[2022-11-23 20:24] VITALS: BP 119/84
== END 2022-11-23 20:24 | disposition home or self-care (01) ==
LOC: ED 19:50
DX: J03.90 Acute tonsillitis, unspecified (principal); F17.210 Nicotine dependence, cigarettes, uncomplicated

== ENCOUNTER 2022-11-26 13:19 | Emergency (ER) | payer OTHER ==
[~2022-11-26] VITALS: Ht 162.6 cm; Wt 72.0 kg
[2022-11-26] MEDS ORDERED: PENICILLIN V P500 MG PO (14:02)
[2022-11-26] MEDS ORDERED: MOTRIN400 MG/TAB PO (14:02)
[2022-11-26 14:40] VITALS: BP 112/76
== END 2022-11-26 14:40 | disposition home or self-care (01) ==
LOC: ED 13:19
DX: J03.80 Acute tonsillitis due to other specified organisms (principal); B96.89 Other specified bacterial agents as the cause of diseases classified elsewhere
CPT/HCPCS: J0561

== ENCOUNTER 2023-03-06 06:23 | Emergency (ER) | payer OTHER ==
[~2023-03-06] VITALS: Ht 162.6 cm; Wt 65.0 kg
[~2023-03-06 06:23] MED LIST changes: +MOTRIN400 MG/TAB PO; +PENICILLIN V P500 MG PO
[2023-03-06 06:45] VITALS: BP 124/64
[2023-03-06 07:00] VITALS: BP 134/82
[2023-03-06 07:16] VITALS: BP 113/69
[2023-03-06 09:42] VITALS: BP 127/78
[2023-03-06] MEDS ORDERED: TRAMADOL HYDROC50 M1 PO (09:54)
[2023-03-06 10:41] VITALS: BP 127/78
== END 2023-03-06 11:00 | disposition home or self-care (01) ==
LOC: ED 06:23
DX: S52.502A Unspecified fracture of the lower end of left radius, initial encounter for closed fracture (principal); M54.50 Low back pain, unspecified; M53.3 Sacrococcygeal disorders, not elsewhere classified; F17.200 Nicotine dependence, unspecified, uncomplicated; W17.89XA Other fall from one level to another, initial encounter; Y93.89 Activity, other specified; Y92.009 Unspecified place in unspecified non-institutional (private) residence as the place of occurrence of the external cause

== ENCOUNTER 2023-03-30 18:39 | Emergency (ER) | payer OTHER ==
[~2023-03-30] VITALS: Ht 162.6 cm; Wt 71.8 kg
[~2023-03-30 18:39] MED LIST changes: +TRAMADOL HYDROC50 M1 PO
[2023-03-30 18:41] VITALS: BP 116/75
[2023-03-30 18:46] VITALS: BP 111/67
[2023-03-30] MEDS ORDERED: VENTOLIN HFA IN (19:22)
[2023-03-30 19:48] VITALS: BP 111/67
== END 2023-03-30 19:52 | disposition home or self-care (01) ==
LOC: ED 18:39
DX: T59.811A Toxic effect of smoke, accidental (unintentional), initial encounter (principal); J70.5 Respiratory conditions due to smoke inhalation; F17.200 Nicotine dependence, unspecified, uncomplicated; Y92.009 Unspecified place in unspecified non-institutional (private) residence as the place of occurrence of the external cause

== ENCOUNTER 2023-04-03 20:55 | Emergency (ER) | payer OTHER ==
[~2023-04-03] VITALS: Ht 162.6 cm; Wt 70.7 kg
[~2023-04-03 20:55] MED LIST changes: +VENTOLIN HFA IN
[2023-04-03 22:45] VITALS: BP 113/65
== END 2023-04-03 22:45 | disposition home or self-care (01) ==
LOC: ED 20:55
DX: J06.9 Acute upper respiratory infection, unspecified (principal); F17.200 Nicotine dependence, unspecified, uncomplicated; Z20.822 Contact with and (suspected) exposure to COVID-19

== ENCOUNTER 2023-04-11 15:03 | Emergency (ER) | payer OTHER ==
[~2023-04-11] VITALS: Ht 162.6 cm; Wt 70.0 kg
[2023-04-11 15:45] VITALS: BP 104/56
[2023-04-11] MEDS ORDERED: ZPAK PO (16:50)
[2023-04-11 17:02] VITALS: BP 125/61
[2023-04-11 17:05] VITALS: BP 125/61
== END 2023-04-11 17:05 | disposition home or self-care (01) ==
LOC: ED 15:03
DX: J06.9 Acute upper respiratory infection, unspecified (principal); F17.200 Nicotine dependence, unspecified, uncomplicated; Z20.822 Contact with and (suspected) exposure to COVID-19

== ENCOUNTER 2023-05-18 21:40 | Emergency (ER) | payer OTHER ==
[~2023-05-18] VITALS: Ht 162.6 cm; Wt 70.0 kg
[2023-05-18 21:59] VITALS: BP 113/79
[2023-05-18 22:00] VITALS: BP 109/75
[2023-05-18 22:15] VITALS: BP 101/67
[2023-05-18 22:30] VITALS: BP 106/61
[2023-05-18 22:45] VITALS: BP 109/67
[2023-05-18 23:06] LABS: URINE BILIRUBIN - DIPSTICK NEGATIVE (NEGATIVE); URINE BLOOD DIPSTICK MODERATE (NEGATIVE); URINE COLOR YELLOW; URINE GLUCOSE - DIPSTICK NEGATIVE (NEGATIVE); URINE KETONE NEGATIVE (NEGATIVE); URINE LEUK ESTERASE NEGATIVE (NEGATIVE); URINE PROTEIN - DIPSTICK NEGATIVE (NEG-TRACE); URINE SPECIFIC GRAVITY <=1.005; URINE UROBILINOGEN - DIPSTICK 0.2 E.U./dL (0.2)
[2023-05-18 23:08] LABS: URINE NITRITE - DIPSTICK NEGATIVE (Negative)
[2023-05-18 23:13] LABS: URINE SQUAMOUS EPITHELIAL CELL FEW EPI/hpf (0-FEW); URINE TRANSITIONAL EPI. CELLS FEW hpf; URINE WBC 0-2 WBC/hpf (0-5)
[2023-05-18] MEDS ORDERED: DIPHENHYDRAM50 M2 PO (23:29)
[2023-05-18] MEDS ORDERED: MEDDOSEPAK PO (23:29)
[2023-05-18] MEDS ORDERED: PEPCID20 MG PO (23:29)
[2023-05-19 00:14] VITALS: BP 109/67
== END 2023-05-19 00:22 | disposition home or self-care (01) ==
LOC: ED 21:40
PROVIDERS: Emergency Medicine
DX: T78.40XA Allergy, unspecified, initial encounter (principal); F17.200 Nicotine dependence, unspecified, uncomplicated; X58.XXXA Exposure to other specified factors, initial encounter

== ENCOUNTER 2023-07-27 15:52 | Emergency (ER) | payer OTHER ==
[~2023-07-27] VITALS: Ht 162.6 cm; Wt 75.0 kg
[~2023-07-27 15:52] MED LIST changes: +DIPHENHYDRAM50 M2 PO
[2023-07-27] MEDS ORDERED: ZYRTEC10 MG PO (17:28)
[2023-07-27] MEDS ORDERED: PENICILLN VK500 MG PO (17:28)
[2023-07-27 18:13] VITALS: BP 121/60
== END 2023-07-27 18:14 | disposition home or self-care (01) ==
LOC: ED 15:52
DX: J02.9 Acute pharyngitis, unspecified (principal); F17.200 Nicotine dependence, unspecified, uncomplicated; Z20.822 Contact with and (suspected) exposure to COVID-19

== ENCOUNTER 2023-08-25 23:21 | Emergency (ER) | payer OTHER ==
[~2023-08-25] VITALS: Ht 162.6 cm; Wt 70.5 kg
[~2023-08-25 23:21] MED LIST changes: +ZYRTEC10 MG PO
[2023-08-26 00:05] LABS: URINE BILIRUBIN - DIPSTICK Negative (NEGATIVE); URINE BLOOD DIPSTICK Negative (NEGATIVE); URINE COLOR Yellow; URINE GLUCOSE - DIPSTICK Negative (NEGATIVE); URINE KETONE Negative (NEGATIVE); URINE LEUK ESTERASE Negative (NEGATIVE); URINE NITRITE - DIPSTICK Negative (Negative); URINE PROTEIN - DIPSTICK Negative (NEG-TRACE); URINE UROBILINOGEN - DIPSTICK 0.2 E.U./dL (0.2)
[2023-08-26 00:37] LABS: BASO% 0.6 % (0-3); EOS% 3.6 % (0-8); HEMATOCRIT 42.3 % (37.0-47.0); HEMOGLOBIN 13.8 g/dl (12.0-16.0); IMMATURE GRANULOCYTES 0.8 % (0.0-5.0); LYMPH% 31.4 % (15-41); MEAN CELL VOLUME 92.8 fL CALC (80.0-100.0); MEAN CORPUSCULAR HGB 30.3 pG CALC (26.0-32.0); MEAN CORPUSCULAR HGB CONC 32.6 g/dL CAL (32.0-36.0); NEUT# 5.51 thou/uL (2.00-7.15); NEUT% 55.6 % (42-76); RED BLOOD COUNT 4.56 mill/uL (4.20-5.60); RED CELL DISTRI WIDTH 13.3 % (11.5-15.5)
[2023-08-26 00:50] LABS: ALBUMIN 4.4 g/dL (3.2-5.0); ALKALINE PHOSPHATASE 62 u/l (38-126); ANION GAP 13 (6-22 (CALC)); BILIRUBIN, TOTAL 0.4 mg/dL (0.02-1.3); BUN 10 mg/dL (7-17); BUN/CREATININE RATIO 14 (12-20 (CALC)); CARBON DIOXIDE 23 mmol/l (22-30); CHLORIDE 105 mmol/l (95-108); CREATININE 0.7 mg/dL (0.5-1.0); GFR FOR AFR.AMER. > 60 ML/MIN (>=60 (CALC)); GFR OTHER RACES > 60 ML/MIN (>=60 (CALC)); POTASSIUM 3.5 mmol/l (3.5-5.1); SODIUM 137 mmol/l (137-146); TOTAL PROTEIN 7.4 g/dL (6.3-8.2)
[2023-08-26 00:52] LABS: SGOT/AST 44 u/l (14-36)
[2023-08-26 00:58] LABS: ETHYL ALCOHOL 0 mg/dl (0-30)
[2023-08-26 02:53] VITALS: BP 128/86
== END 2023-08-26 03:05 | disposition home or self-care (01) ==
LOC: ED 23:21
PROVIDERS: Emergency Medicine
DX: F14.10 Cocaine abuse, uncomplicated (principal); R07.89 Other chest pain; R00.2 Palpitations; R19.7 Diarrhea, unspecified; H66.91 Otitis media, unspecified, right ear; Z72.0 Tobacco use; Z88.8 Allergy status to other drugs, medicaments and biological substances

== ENCOUNTER 2023-08-30 23:09 | Emergency (ER) | payer OTHER ==
[~2023-08-30] VITALS: Ht 162.6 cm; Wt 70.0 kg
[2023-08-30 23:55] LABS: BASO% 0.4 % (0-3); EOS% 2.4 % (0-8); HEMATOCRIT 42.2 % (37.0-47.0); HEMOGLOBIN 13.4 g/dl (12.0-16.0); IMMATURE GRANULOCYTES 0.2 % (0.0-5.0); LYMPH% 19.5 % (15-41); MEAN CORPUSCULAR HGB 30.2 pG CALC (26.0-32.0); MEAN CORPUSCULAR HGB CONC 31.8 g/dL CAL (32.0-36.0); NEUT# 9.93 thou/uL (2.00-7.15); NEUT% 71.5 % (42-76); RED BLOOD COUNT 4.44 mill/uL (4.20-5.60); RED CELL DISTRI WIDTH 13.5 % (11.5-15.5)
[2023-08-30 23:58] LABS: URINE BILIRUBIN - DIPSTICK Negative (NEGATIVE); URINE BLOOD DIPSTICK Trace-intact (NEGATIVE); URINE GLUCOSE - DIPSTICK Negative (NEGATIVE); URINE KETONE Negative (NEGATIVE); URINE LEUK ESTERASE Negative (NEGATIVE); URINE NITRITE - DIPSTICK Negative (Negative); URINE PROTEIN - DIPSTICK Negative (NEG-TRACE); URINE SPECIFIC GRAVITY 1.015; URINE UROBILINOGEN - DIPSTICK 0.2 E.U./dL (0.2)
[2023-08-31 00:08] LABS: URINE COLOR Yellow
[2023-08-31 00:16] LABS: ALBUMIN 4.3 g/dL (3.2-5.0); ALKALINE PHOSPHATASE 62 u/l (38-126); ANION GAP 12 (6-22 (CALC)); BILIRUBIN, TOTAL 0.3 mg/dL (0.02-1.3); BUN 14 mg/dL (7-17); BUN/CREATININE RATIO 17 (12-20 (CALC)); CARBON DIOXIDE 23 mmol/l (22-30); CHLORIDE 107 mmol/l (95-108); CREATININE 0.9 mg/dL (0.5-1.0); GFR FOR AFR.AMER. > 60 ML/MIN (>=60 (CALC)); GFR OTHER RACES > 60 ML/MIN (>=60 (CALC)); POTASSIUM 3.3 mmol/l (3.5-5.1); SGOT/AST 27 u/l (14-36); SODIUM 138 mmol/l (137-146); TOTAL PROTEIN 7.3 g/dL (6.3-8.2)
[2023-08-31] MEDS ORDERED: CLINDAMYCIN300 M1 PO (01:05)
[2023-08-31 01:06] VITALS: BP 114/80
== END 2023-08-31 01:22 | disposition home or self-care (01) ==
LOC: ED 23:09
PROVIDERS: Emergency Medicine
DX: T81.89XA Other complications of procedures, not elsewhere classified, initial encounter (principal); K08.409 Partial loss of teeth, unspecified cause, unspecified class; Y83.8 Other surgical procedures as the cause of abnormal reaction of the patient, or of later complication, without mention of misadventure at the time of the procedure; Z88.8 Allergy status to other drugs, medicaments and biological substances; Z91.013 Allergy to seafood; Z72.0 Tobacco use

== ENCOUNTER 2023-11-14 18:40 | Emergency (ER) | payer OTHER ==
[~2023-11-14] VITALS: Ht 162.6 cm; Wt 71.6 kg
[~2023-11-14 18:40] MED LIST changes: +CLINDAMYCIN300 M1 PO
[2023-11-14 18:50] VITALS: BP 126/83
[2023-11-14] MEDS ORDERED: DESYREL50 MG PO (18:54)
[2023-11-14 19:01] VITALS: BP 117/55
[2023-11-14 20:15] VITALS: BP 117/55
== END 2023-11-14 20:16 | disposition left against medical advice (07) ==
LOC: ED 18:40 → AMA 19:00 → ED 19:00 → AMA 20:16
DX: R07.9 Chest pain, unspecified (principal); F17.210 Nicotine dependence, cigarettes, uncomplicated; Z53.29 Procedure and treatment not carried out because of patient's decision for other reasons

== ENCOUNTER 2024-06-03 23:27 | Emergency (ER) | payer OTHER ==
[~2024-06-03] VITALS: Ht 160 cm; Wt 73.0 kg
[~2024-06-03 23:27] MED LIST changes: +DESYREL50 MG PO
[2024-06-03 23:41] VITALS: BP 137/100
[2024-06-04] VITALS: BP 138/97
[2024-06-04 00:17] VITALS: BP 138/97
== END 2024-06-04 00:21 | disposition home or self-care (01) ==
LOC: ED 23:27
DX: F14.988 Cocaine use, unspecified with other cocaine-induced disorder (principal); R06.4 Hyperventilation; Z72.0 Tobacco use

== ENCOUNTER 2024-06-12 02:11 | Emergency (ER) | payer OTHER ==
[~2024-06-12] VITALS: Ht 160 cm; Wt 69.0 kg
[2024-06-12 02:17] VITALS: BP 152/97
[2024-06-12 02:30] VITALS: BP 133/93
[2024-06-12] MEDS ORDERED: SODIUM CHLORIDE 0.9% 1,000 ML IV ONE (02:35)
[2024-06-12] MEDS ORDERED: DiphenhydrAMINE HCL 50 MG/ML SDV IV ONE (02:35)
[2024-06-12 03:00] VITALS: BP 130/75
[2024-06-12 03:01] LABS: BASO% 0.4 % (0-3); EOS% 2.1 % (0-8); HEMATOCRIT 37.7 % (37.0-47.0); HEMOGLOBIN 12.6 g/dl (12.0-16.0); IMMATURE GRANULOCYTES 0.3 % (0.0-5.0); LYMPH% 15.3 % (15-41); MEAN CELL VOLUME 93.8 fL CALC (80.0-100.0); MEAN CORPUSCULAR HGB 31.3 pG CALC (26.0-32.0); MEAN CORPUSCULAR HGB CONC 33.4 g/dL CAL (32.0-36.0); NEUT# 11.87 thou/uL (2.00-7.15); NEUT% 75.9 % (42-76); RED BLOOD COUNT 4.02 mill/uL (4.20-5.60); RED CELL DISTRI WIDTH 12.8 % (11.5-15.5)
[2024-06-12 03:06] LABS: URINE BILIRUBIN - DIPSTICK Negative (NEGATIVE); URINE GLUCOSE - DIPSTICK Negative (NEGATIVE); URINE KETONE Negative (NEGATIVE); URINE NITRITE - DIPSTICK Negative (Negative); URINE PH 5.5 (4.5-8.0); URINE PROTEIN - DIPSTICK Negative (NEG-TRACE); URINE SPECIFIC GRAVITY <=1.005; URINE UROBILINOGEN - DIPSTICK 0.2 E.U./dL (0.2)
[2024-06-12 03:09] LABS: URINE BLOOD DIPSTICK Negative (NEGATIVE); URINE COLOR Yellow; URINE LEUK ESTERASE Moderate (NEGATIVE)
[2024-06-12 03:13] LABS: URINE BACTERIA MODERATE hpf; URINE EPITHELIAL CELLS MODERATE EPI/hpf (0-FEW)
[2024-06-12 03:14] LABS: URINE TRICHOMONAS FEW hpf
[2024-06-12 03:19] LABS: ALBUMIN 4.2 g/dL (3.2-5.0); ALKALINE PHOSPHATASE 63 u/l (38-126); ANION GAP 10 (6-22 (CALC)); BILIRUBIN, TOTAL 0.4 mg/dL (0.02-1.3); BUN 11 mg/dL (7-17); BUN/CREATININE RATIO 16 (12-20 (CALC)); CARBON DIOXIDE 23 mmol/l (22-30); CHLORIDE 107 mmol/l (95-108); CPK 89 u/l (30-135); CREATININE 0.7 mg/dL (0.5-1.0); ESTIMATED GFR 116 ML/MIN (>=90 (CALC)); ETHYL ALCOHOL 0 mg/dl (0-30); MAGNESIUM 2.2 mg/dL (1.6-2.3); POTASSIUM 3.6 mmol/l (3.5-5.1); SGOT/AST 26 u/l (14-36); SODIUM 136 mmol/l (137-146); TOTAL PROTEIN 7.2 g/dL (6.3-8.2)
[2024-06-12 03:30] VITALS: BP 134/81
[2024-06-12] MEDS ORDERED: SULFAMETHOXAZOLE W/TRIMETHOPRI 1 COMBO TAB PO ONE (03:45)
[2024-06-12] MEDS ORDERED: metroNIDAZOLE 500 MG/TAB PO ONE (03:45)
[2024-06-12] MEDS ORDERED: BACTRIM DS1 TAB PO (03:47)
[2024-06-12] MEDS ORDERED: METRONIDAZOLE500 MG PO (03:47)
[2024-06-12 03:57] VITALS: BP 134/81
== END 2024-06-12 03:57 | disposition home or self-care (01) ==
LOC: ED 02:11
PROVIDERS: Family Medicine
DX: F14.10 Cocaine abuse, uncomplicated (principal); N39.0 Urinary tract infection, site not specified; R06.4 Hyperventilation; A59.00 Urogenital trichomoniasis, unspecified; Z72.0 Tobacco use

== ENCOUNTER 2024-06-14 23:41 | Emergency (ER) | payer OTHER ==
[~2024-06-14] VITALS: Ht 160 cm; Wt 69.0 kg
[~2024-06-14 23:41] MED LIST changes: +METRONIDAZOLE500 MG PO
[2024-06-14] MEDS ORDERED: SODIUM CHLORIDE 0.9% 1,000 ML IV ONE (23:55)
[2024-06-14] MEDS ORDERED: ASPIRIN 81 MG/TAB PO ONE (23:55)
[2024-06-14] MEDS ORDERED: hydrOXYzine HCL 25 MG/TAB PO ONE (23:55)
[2024-06-15 00:26] LABS: BASO% 0.3 % (0-3); EOS% 1.1 % (0-8); HEMATOCRIT 40.5 % (37.0-47.0); HEMOGLOBIN 13.6 g/dl (12.0-16.0); IMMATURE GRANULOCYTES 0.4 % (0.0-5.0); LYMPH% 8.9 % (15-41); MEAN CELL VOLUME 93.8 fL CALC (80.0-100.0); MEAN CORPUSCULAR HGB 31.5 pG CALC (26.0-32.0); MEAN CORPUSCULAR HGB CONC 33.6 g/dL CAL (32.0-36.0); MONO% 5.9 % (2-13); NEUT# 13.32 thou/uL (2.00-7.15); NEUT% 83.4 % (42-76); RED BLOOD COUNT 4.32 mill/uL (4.20-5.60); RED CELL DISTRI WIDTH 12.8 % (11.5-15.5)
[2024-06-15 00:42] LABS: ALBUMIN 4.7 g/dL (3.2-5.0); ALKALINE PHOSPHATASE 55 u/l (38-126); ANION GAP 12 (6-22 (CALC)); BILIRUBIN, TOTAL 0.4 mg/dL (0.02-1.3); BUN 10 mg/dL (7-17); BUN/CREATININE RATIO 12 (12-20 (CALC)); CARBON DIOXIDE 19 mmol/l (22-30); CHLORIDE 107 mmol/l (95-108); CREATININE 0.9 mg/dL (0.5-1.0); ESTIMATED GFR 86 ML/MIN (>=90 (CALC)); POTASSIUM 3.8 mmol/l (3.5-5.1); SGOT/AST 24 u/l (14-36); SODIUM 134 mmol/l (137-146); TOTAL PROTEIN 7.7 g/dL (6.3-8.2)
[2024-06-15 01:59] VITALS: BP 147/89
== END 2024-06-15 01:59 | disposition home or self-care (01) ==
LOC: ED 23:41
PROVIDERS: Family Medicine
DX: F14.988 Cocaine use, unspecified with other cocaine-induced disorder (principal); R07.9 Chest pain, unspecified; Z72.0 Tobacco use

== ENCOUNTER 2024-07-23 20:03 | Emergency (ER) | payer OTHER ==
[~2024-07-23] VITALS: Ht 160 cm; Wt 62.0 kg
[2024-07-23] MEDS ORDERED: METHOCARBAMOL 500 MG/TAB PO ONE (22:10)
[2024-07-23] MEDS ORDERED: KETOROLAC TROMETHAMINE 30 MG/ML SDV IM ONE (22:10)
[2024-07-24] MEDS ORDERED: METHOCARBAMOL500 MG PO (00:40)
[2024-07-24 01:16] VITALS: BP 141/95
== END 2024-07-24 01:16 | disposition home or self-care (01) | DRG 556 ==
LOC: ED 20:03
DX: M25.512 Pain in left shoulder (principal); M79.602 Pain in left arm; V44.5XXA Car driver injured in collision with heavy transport vehicle or bus in traffic accident, initial encounter; Z72.0 Tobacco use

== ENCOUNTER 2024-08-24 21:15 | Emergency (ER) | payer OTHER ==
[~2024-08-24] VITALS: Ht 160 cm; Wt 68.0 kg
[~2024-08-24 21:15] MED LIST changes: +METHOCARBAMOL500 MG PO
[2024-08-24 23:38] VITALS: BP 132/89
== END 2024-08-24 23:38 | disposition left against medical advice (07) | DRG 951 ==
LOC: ED 21:15 → LWOBS 23:38
DX: Z53.21 Procedure and treatment not carried out due to patient leaving prior to being seen by health care provider (principal)

== ENCOUNTER 2024-08-28 19:24 | Emergency (ER) | payer OTHER ==
[~2024-08-28] VITALS: Ht 160 cm; Wt 68.0 kg
[2024-08-28] MEDS ORDERED: cloNIDine HCL 0.1 MG/TAB PO ONE (19:45)
[2024-08-28 20:56] VITALS: BP 127/84
== END 2024-08-28 20:56 | disposition home or self-care (01) ==
LOC: ED 19:24
DX: T40.2X1A Poisoning by other opioids, accidental (unintentional), initial encounter (principal); F41.9 Anxiety disorder, unspecified; F14.10 Cocaine abuse, uncomplicated; Z72.0 Tobacco use

== ENCOUNTER 2024-11-02 15:56 | Emergency (ER) | payer OTHER ==
[~2024-11-02] VITALS: Ht 160 cm; Wt 68.0 kg
[2024-11-02] MEDS ORDERED: KETOROLAC TROMETHAMINE 30 MG/ML SDV IM ONE (16:30)
[2024-11-02 18:59] VITALS: BP 128/72
== END 2024-11-02 19:08 | disposition home or self-care (01) ==
LOC: ED 15:56
DX: B34.9 Viral infection, unspecified (principal); G43.909 Migraine, unspecified, not intractable, without status migrainosus; Z20.822 Contact with and (suspected) exposure to COVID-19; Z72.0 Tobacco use

== ENCOUNTER 2024-11-14 21:03 | Emergency (ER) | payer OTHER ==
[~2024-11-14] VITALS: Ht 160 cm; Wt 69.0 kg
[2024-11-14] MEDS ORDERED: Diph, Acellular Pertussis, Tet 0.5 ML/VIAL (Tdap) SDV IM ONE (22:35)
[2024-11-14] MEDS ORDERED: ACETAMINOPHEN 500 MG TAB PO ONE (22:35)
[2024-11-14] MEDS ORDERED: IBUPROFEN 600 MG/TAB PO ONE (22:35)
[2024-11-15 00:25] VITALS: BP 132/84
== END 2024-11-15 00:27 | disposition home or self-care (01) ==
LOC: ED 21:03
DX: S91.331A Puncture wound without foreign body, right foot, initial encounter (principal); Y29.XXXA Contact with blunt object, undetermined intent, initial encounter; Z72.0 Tobacco use
CPT/HCPCS: 90715

== ENCOUNTER 2024-12-21 16:49 | Emergency (ER) | payer OTHER ==
[~2024-12-21] VITALS: Ht 160 cm; Wt 68.0 kg
[2024-12-21 17:19] VITALS: BP 119/78
[2024-12-21] MEDS ORDERED: ISOVUE-300 (Iopamidol) 100 ML SDV IV ONE (17:40)
[2024-12-21] MEDS ORDERED: methylPREDNISolone SODIUM SUCC 125 MG/2 ML SDV IV ONE (17:45)
[2024-12-21] MEDS ORDERED: DiphenhydrAMINE HCL 50 MG/ML SDV IV ONE (17:45)
[2024-12-21] MEDS ORDERED: KETOROLAC TROMETHAMINE 15 MG/ML SDV IV ONE (17:45)
[2024-12-21] MEDS ORDERED: AMPICILLIN & SULBACTAM SODIUM 1.5 GM in SODIUM CHLORIDE 0.9% 50 ML IV ONE (17:50)
[2024-12-21 17:54] VITALS: BP 117/80
[2024-12-21 17:59] LABS: BASO% 0.6 % (0-3); EOS% 1.9 % (0-8); HEMATOCRIT 43.8 % (37.0-47.0); HEMOGLOBIN 13.8 g/dl (12.0-16.0); IMMATURE GRANULOCYTES 0.3 % (0.0-5.0); LYMPH% 25.1 % (15-41); MEAN CELL VOLUME 99.3 fL CALC (80.0-100.0); MEAN CORPUSCULAR HGB 31.3 pG CALC (26.0-32.0); MEAN CORPUSCULAR HGB CONC 31.5 g/dL CAL (32.0-36.0); MONO% 5.8 % (2-13); NEUT# 4.81 thou/uL (2.00-7.15); NEUT% 66.3 % (42-76); RED BLOOD COUNT 4.41 mill/uL (4.20-5.60); RED CELL DISTRI WIDTH 12.9 % (11.5-15.5)
[2024-12-21 18:00] VITALS: BP 110/66
[2024-12-21 18:11] LABS: ALBUMIN 4.1 g/dL (3.2-5.0); BILIRUBIN, TOTAL 0.5 mg/dL (0.02-1.3); CREATININE 0.7 mg/dL (0.5-1.0); POTASSIUM 3.8 mmol/l (3.5-5.1); TOTAL PROTEIN 6.9 g/dL (6.3-8.2)
[2024-12-21 18:16] VITALS: BP 79/64
[2024-12-21 18:45] VITALS: BP 117/77
[2024-12-21] MEDS ORDERED: AMOX/K CLAV875 M1 PO (20:05)
[2024-12-21] MEDS ORDERED: TRAMADOL HYDROC50 M1 PO (20:05)
[2024-12-21 21:04] VITALS: BP 117/77
[2024-12-21] MEDS ORDERED: PREDNISONE50 MG PO (21:09)
== END 2024-12-21 21:12 | disposition home or self-care (01) ==
LOC: ED 16:49
PROVIDERS: Nurse Practitioner Family
DX: K04.7 Periapical abscess without sinus (principal); K02.9 Dental caries, unspecified; Z72.0 Tobacco use
CPT/HCPCS: J0295; J1200; J1885; Q9967